=== PATIENT | female | born 1995 | race Caucasian/White ===

== ENCOUNTER 2023-04-24 14:22 | Inpatient (IN) | payer OTHER ==
[~2023-04-24] VITALS: Ht 170.2 cm; Wt 83.9 kg
[2023-04-24 15:00] VITALS: BP 136/75; TEMP 98.2; O2SAT 98
[2023-04-24] MEDS ORDERED: MAG HYDROX/AL HYDROX/SIMETH 30 ML UDC PO PRN (15:00)
[2023-04-24] MEDS ORDERED: LORAZEPAM 1 MG TABLET FOR AGITATION PO PRN (15:00)
[2023-04-24] MEDS ORDERED: ACETAMINOPHEN ES 500 MG TABLET PO PRN (15:00)
[2023-04-24] MEDS ORDERED: MAGNESIUM HYDROXIDE 30 ML UDC PO PRN (15:00)
[2023-04-24] MEDS ORDERED: ZOLPIDEM TARTRATE 10 MG TABLET PO PRN (15:00)
[2023-04-24 18:00] VITALS: BP 136/75; TEMP 98.2; O2SAT 98
[2023-04-24 20:28] VITALS: BP 114/79; TEMP 99; O2SAT 97
[2023-04-24] MEDS: PALIPERIDONE 6 MG PO ONE (22:52)
[2023-04-25 08:00] VITALS: BP 116/60; TEMP 98.8; O2SAT 97
[2023-04-25 16:00] VITALS: BP 108/61; TEMP 98.2; O2SAT 99
[2023-04-25 20:00] VITALS: BP 113/64; TEMP 98.2; O2SAT 100
[2023-04-25] MEDS: PALIPERIDONE 3 MG PO SCH (22:00)
[2023-04-26 07:00] VITALS: BP 104/65; TEMP 98.6; O2SAT 98
[2023-04-26 16:00] VITALS: BP 120/74; TEMP 99.5; O2SAT 99
[2023-04-26 21:03] VITALS: BP 100/62; TEMP 98.1; O2SAT 98
[2023-04-27 07:00] VITALS: BP 103/61; TEMP 98.4; O2SAT 99
[2023-04-27 16:00] VITALS: BP 108/61; TEMP 98.6; O2SAT 99
[2023-04-27 20:00] VITALS: BP 108/53; TEMP 97.5; O2SAT 98
[2023-04-28 07:00] VITALS: BP 123/72; TEMP 98.6; O2SAT 98
[2023-04-28 16:00] VITALS: BP 100/60; TEMP 98.4; O2SAT 99
[2023-04-28 20:00] VITALS: BP 112/67; TEMP 98.8; O2SAT 97
[2023-04-29 07:00] VITALS: BP 110/55; TEMP 97.9; O2SAT 100
[2023-04-29 17:07] VITALS: BP 111/63; TEMP 98.2; O2SAT 100
[2023-04-29 20:00] VITALS: BP 102/60; TEMP 98.8; O2SAT 98
[2023-04-30 08:27] VITALS: BP 109/67; TEMP 98.2; O2SAT 100
[2023-04-30 20:00] VITALS: BP 102/63; TEMP 98.1; O2SAT 98
[2023-05-01 08:00] VITALS: BP 109/68; TEMP 98.2; O2SAT 96
[2023-05-01 16:00] VITALS: BP 115/63; TEMP 98.8; O2SAT 100
[2023-05-01 20:00] VITALS: BP 113/71; TEMP 98.7; O2SAT 100
[2023-05-01 21:00] VITALS: BP 113/71; TEMP 98.7; O2SAT 100
[2023-05-02 20:00] VITALS: BP 120/73; TEMP 98.8; O2SAT 98
[2023-05-03 07:00] VITALS: BP 106/66; TEMP 98.4; O2SAT 99
[2023-05-03 16:09] VITALS: BP 109/60; TEMP 98.4; O2SAT 99
[2023-05-03 20:40] VITALS: BP 117/68; TEMP 98.4; O2SAT 100
[2023-05-04] MEDS: IBUPROFEN 200 MG TABLET PO PRN (06:25)
[2023-05-04 07:00] VITALS: BP 110/64; TEMP 98.4; O2SAT 99
[2023-05-04 16:04] VITALS: BP 104/57; TEMP 98.4; O2SAT 98
[2023-05-04 20:00] VITALS: BP 129/74; TEMP 98.2; O2SAT 96
[2023-05-05 08:30] VITALS: BP 121/68; TEMP 98.4; O2SAT 99
[2023-05-05 16:00] VITALS: BP 117/67; TEMP 98.4; O2SAT 99
[2023-05-05 20:00] VITALS: BP 114/73; TEMP 98.6; O2SAT 99
[2023-05-06 07:00] VITALS: BP 115/72; TEMP 97.4; O2SAT 98
[2023-05-06 16:00] VITALS: BP 106/66; TEMP 97.9; O2SAT 99
[2023-05-06 20:00] VITALS: BP_SYST 113; BP_SYST 120; BP_DIAS 72; BP_DIAS 76; TEMP 97.7; TEMP 98.4; O2SAT 97; O2SAT 99
[2023-05-07 08:00] VITALS: BP 113/71; TEMP 98.4; O2SAT 96
[2023-05-07 16:00] VITALS: BP 105/54; TEMP 98.6; O2SAT 98
[2023-05-07 20:00] VITALS: BP 116/76; TEMP 97.9; O2SAT 99
[2023-05-08 08:00] VITALS: BP 113/68; TEMP 97.7; O2SAT 98
[2023-05-08] MEDS ORDERED: ZOLPIDEM TARTRATE 10 MG TABLET PO PRN (13:00)
[2023-05-08] MEDS ORDERED: LORAZEPAM 1 MG TABLET FOR AGITATION PO PRN (13:00)
[2023-05-08 16:00] VITALS: BP_SYST 111; BP_SYST 149; BP_DIAS 65; TEMP 97.7; O2SAT 99
[2023-05-08 20:00] VITALS: BP 117/68; TEMP 98.8; O2SAT 99
[2023-05-08 20:51] VITALS: BP 117/68; TEMP 98.8; O2SAT 99
[2023-05-09 07:30] VITALS: BP 106/61; TEMP 98.4; O2SAT 96
[2023-05-09] MEDS: INVEST MED CVL-231-2002 PO SCH (09:07)
[2023-05-09 16:00] VITALS: BP 107/65; TEMP 98.1; O2SAT 99
[2023-05-09 20:00] VITALS: BP 111/68; TEMP 98.8; O2SAT 99
[2023-05-10 07:30] VITALS: BP 110/66; TEMP 97.3; O2SAT 99
[2023-05-10 20:00] VITALS: BP 114/66; TEMP 98.3; O2SAT 97
[2023-05-11 07:30] VITALS: BP 106/60; TEMP 97.8; O2SAT 96
[2023-05-11 16:00] VITALS: BP 100/57; TEMP 98.8; O2SAT 100
[2023-05-11 20:00] VITALS: BP 112/67; TEMP 97.9; O2SAT 100
[2023-05-11 21:39] VITALS: BP 123/70; TEMP 98.2; O2SAT 99
[2023-05-12 07:00] VITALS: BP 107/67; TEMP 97.9; O2SAT 98
[2023-05-12 16:00] VITALS: BP 112/80; TEMP 98.1; O2SAT 98
[2023-05-12 20:00] VITALS: BP 116/71; TEMP 98.1; O2SAT 99
[2023-05-13 07:30] VITALS: BP 100/68; TEMP 97.7; O2SAT 99
[2023-05-13 20:00] VITALS: BP 106/72; TEMP 97.9; O2SAT 98
[2023-05-14 16:00] VITALS: BP 103/71; TEMP 98.4; O2SAT 99
[2023-05-14 20:00] VITALS: BP 112/72; TEMP 98.6; O2SAT 97
[2023-05-15] MEDS ORDERED: LORAZEPAM 1 MG TABLET FOR AGITATION PO PRN (13:00)
[2023-05-15] MEDS ORDERED: ZOLPIDEM TARTRATE 10 MG TABLET PO PRN (13:00)
[2023-05-15 16:00] VITALS: BP 100/50; TEMP 98; O2SAT 100
[2023-05-15 20:00] VITALS: BP 106/74; TEMP 97.9; O2SAT 97
[2023-05-16 08:00] VITALS: BP 104/59; TEMP 97.9; O2SAT 92
[2023-05-16 16:13] VITALS: BP 106/66; TEMP 98.1; O2SAT 99
[2023-05-17 07:00] VITALS: BP 111/60; TEMP 98.4; O2SAT 99
[2023-05-17 20:00] VITALS: BP 95/76; TEMP 98.6; O2SAT 95
[2023-05-18 08:30] VITALS: BP 103/63; TEMP 98.2; O2SAT 97
[2023-05-18 16:24] VITALS: BP 105/69; TEMP 98.6; O2SAT 100
[2023-05-18 21:00] VITALS: BP 119/72; TEMP 98; O2SAT 99
[2023-05-19 08:52] VITALS: BP 115/66; TEMP 98.6; O2SAT 97
[2023-05-19 20:00] VITALS: BP 114/69; TEMP 99; O2SAT 94
[2023-05-20 09:19] VITALS: BP 104/63; TEMP 98.4; O2SAT 99
[2023-05-20 21:19] VITALS: BP 121/67; TEMP 98.4; O2SAT 98
[2023-05-21 07:00] VITALS: BP 115/70; TEMP 97.5; O2SAT 97
[2023-05-21 16:00] VITALS: BP 112/73; TEMP 98.8; O2SAT 99
[2023-05-21 20:00] VITALS: BP 109/67; TEMP 98.6; O2SAT 99
[2023-05-22 08:00] VITALS: BP 117/76; TEMP 98.6; O2SAT 100
[2023-05-22] MEDS ORDERED: ZOLPIDEM TARTRATE 10 MG TABLET PO PRN (13:00)
[2023-05-22] MEDS ORDERED: LORAZEPAM 1 MG TABLET FOR AGITATION PO PRN (13:00)
[2023-05-22 20:00] VITALS: BP 107/63; TEMP 97.9; O2SAT 97
[2023-05-23 07:00] VITALS: BP 97/64; TEMP 99; O2SAT 97
[2023-05-23 16:00] VITALS: BP 114/64; TEMP 99; O2SAT 98
[2023-05-23 20:00] VITALS: BP_SYST 114; BP_SYST 119; BP_DIAS 66; TEMP 90.9; TEMP 98.4; O2SAT 98
[2023-05-24 07:30] VITALS: BP 114/72; TEMP 98.8; O2SAT 98
[2023-05-24 20:00] VITALS: BP 107/50; TEMP 98.6; O2SAT 96
[2023-05-25 08:00] VITALS: BP 107/60; TEMP 98.2; O2SAT 100
[2023-05-25 16:00] VITALS: BP 114/67; TEMP 97.8; O2SAT 97
[2023-05-25 20:00] VITALS: BP 117/71; TEMP 98.8; O2SAT 99
[2023-05-26 08:00] VITALS: BP 127/79; TEMP 97.9; O2SAT 99
[2023-05-26 16:00] VITALS: BP 114/72; TEMP 99; O2SAT 98
[2023-05-26 20:00] VITALS: BP_SYST 125; BP_DIAS 51; BP_DIAS 81; TEMP 99; O2SAT 98
[2023-05-27 08:00] VITALS: BP 122/72; TEMP 98.8; O2SAT 98
[2023-05-27 16:00] VITALS: BP 127/80; TEMP 97.3; O2SAT 98
[2023-05-27 20:15] VITALS: BP 116/72; TEMP 98.6; O2SAT 98
[2023-05-28 08:00] VITALS: BP 116/62; TEMP 98.4; O2SAT 99
[2023-05-28 20:00] VITALS: BP 112/68; TEMP 98.2; O2SAT 97
[2023-05-29 08:00] VITALS: BP 112/66; TEMP 98.8; O2SAT 98
[2023-05-29] MEDS ORDERED: ZOLPIDEM TARTRATE 10 MG TABLET PO PRN (13:00)
[2023-05-29] MEDS ORDERED: LORAZEPAM 1 MG TABLET FOR AGITATION PO PRN (13:00)
[2023-05-29 16:00] VITALS: BP 132/90; TEMP 97.7; O2SAT 97
[2023-05-30 08:00] VITALS: BP 114/79; TEMP 98.1; O2SAT 98
[2023-05-30 16:00] VITALS: BP 106/58; TEMP 98.2; O2SAT 98
[2023-05-30 20:00] VITALS: BP 105/62; TEMP 98.4; O2SAT 98
[2023-05-31 08:00] VITALS: BP 109/67; TEMP 98.2; O2SAT 98
[2023-05-31 16:00] VITALS: BP 118/70; TEMP 97.9; O2SAT 98
[2023-05-31 20:00] VITALS: BP 96/51; TEMP 98.1; O2SAT 97
[2023-06-01 07:30] VITALS: BP 109/62; TEMP 98.4; O2SAT 97
[2023-06-01 20:00] VITALS: BP 120/73; TEMP 98.4; O2SAT 97
[2023-06-02 08:00] VITALS: BP 115/60; TEMP 98.8; O2SAT 98
[2023-06-02 15:45] VITALS: BP 106/61; TEMP 98.2; O2SAT 98
[2023-06-02 20:00] VITALS: BP 119/69; TEMP 98.1; O2SAT 99
[2023-06-03 07:30] VITALS: BP 117/63; TEMP 98.4; O2SAT 99
[2023-06-03 16:00] VITALS: BP 113/70; TEMP 97.7; O2SAT 100
[2023-06-03 20:00] VITALS: BP 121/78; TEMP 98.2; O2SAT 99
[2023-06-04 08:00] VITALS: BP 115/67; TEMP 98.4; O2SAT 98
[2023-06-04 16:00] VITALS: BP 114/78; TEMP 98.2; O2SAT 98
[2023-06-04] MEDS: ENSURE ENLIVE 237 ML LIQUID (VANILLA) PO SCH (17:41)
[2023-06-04 20:00] VITALS: BP 116/74; TEMP 98.8; O2SAT 98
[2023-06-05 08:00] VITALS: BP 109/67; TEMP 99; O2SAT 99
[2023-06-05] MEDS ORDERED: ZOLPIDEM TARTRATE 10 MG TABLET PO PRN (13:00)
[2023-06-05] MEDS ORDERED: LORAZEPAM 1 MG TABLET FOR AGITATION PO PRN (13:00)
[2023-06-05 20:00] VITALS: BP 113/61; TEMP 97.7; O2SAT 97
[2023-06-06 08:00] VITALS: BP 144/69; TEMP 98.4; O2SAT 98
[2023-06-06 09:00] VITALS: BP 114/69; TEMP 98.4; O2SAT 98
[2023-06-06 16:00] VITALS: BP 118/72; TEMP 98.2; O2SAT 99
[2023-06-06 20:00] VITALS: BP 119/72; TEMP 98.2; O2SAT 97
[2023-06-07 08:00] VITALS: BP 111/69; TEMP 98.2; O2SAT 100
[2023-06-07 16:00] VITALS: BP 129/76; TEMP 98.5; O2SAT 98
[2023-06-07 20:00] VITALS: BP 122/77; TEMP 97.7; O2SAT 98
[2023-06-08 08:00] VITALS: BP 109/70; TEMP 97.7; O2SAT 99
[2023-06-08 16:09] VITALS: BP 104/78; TEMP 99.5; O2SAT 98
[2023-06-08 20:00] VITALS: BP 116/62; TEMP 98.6; O2SAT 97
[2023-06-09 07:30] VITALS: BP 107/64; TEMP 98.8; O2SAT 96
[2023-06-09 16:00] VITALS: BP 120/66; TEMP 98.2; O2SAT 98
[2023-06-09 20:00] VITALS: BP 116/66; TEMP 98.2; O2SAT 97
[2023-06-10 08:00] VITALS: BP 136/83; TEMP 98.2; O2SAT 98
[2023-06-10 16:00] VITALS: BP 112/66; TEMP 98.4; O2SAT 100
[2023-06-10 20:00] VITALS: BP 117/63; TEMP 97.9; O2SAT 100
[2023-06-11 07:00] VITALS: BP 117/68; TEMP 97.9; O2SAT 98
[2023-06-11 16:00] VITALS: BP 103/63; TEMP 98.4; O2SAT 99
[2023-06-11 20:00] VITALS: BP 106/66; TEMP 98.6; O2SAT 98
[2023-06-12 08:30] VITALS: BP 100/67; TEMP 98.1; O2SAT 98
[2023-06-12] MEDS ORDERED: ZOLPIDEM TARTRATE 10 MG TABLET PO PRN (13:00)
[2023-06-12] MEDS ORDERED: LORAZEPAM 1 MG TABLET FOR AGITATION PO PRN (13:00)
[2023-06-12 16:00] VITALS: BP 113/71; TEMP 98.6; O2SAT 97
[2023-06-12 20:00] VITALS: BP_SYST 117; BP_SYST 145; BP_DIAS 69; BP_DIAS 88; TEMP 97.7; TEMP 97.9; O2SAT 92; O2SAT 99
[2023-06-13] VITALS: BP 94/60; TEMP 97.5; O2SAT 94
[2023-06-13 04:00] VITALS: BP 101/55; TEMP 97; O2SAT 93
[2023-06-13 08:00] VITALS: BP 104/63; TEMP 98.4; O2SAT 100
[2023-06-13 16:00] VITALS: BP 101/57; TEMP 98.4; O2SAT 97
[2023-06-13 20:00] VITALS: BP 137/71; TEMP 98.1; O2SAT 98
[2023-06-14 08:00] VITALS: BP 105/67; TEMP 98.2; O2SAT 98
[2023-06-14 16:00] VITALS: BP 103/66; TEMP 98.6; O2SAT 98
[2023-06-14 20:00] VITALS: BP 120/77; TEMP 97.8; O2SAT 100
[2023-06-15 07:00] VITALS: BP 119/79; TEMP 97.5; O2SAT 98
[2023-06-15 16:00] VITALS: BP 124/63; TEMP 98.6; O2SAT 93
[2023-06-15 20:00] VITALS: BP_SYST 105; BP_SYST 120; BP_DIAS 66; BP_DIAS 75; TEMP 98.5; O2SAT 96
[2023-06-16 08:00] VITALS: BP 109/61; TEMP 98.2; O2SAT 99
[2023-06-16 16:00] VITALS: BP 123/74; TEMP 98.2; O2SAT 96
[2023-06-16 20:00] VITALS: BP 115/85; TEMP 98.4; O2SAT 99
[2023-06-17 07:30] VITALS: BP 104/68; TEMP 97.9; O2SAT 98
[2023-06-17 20:00] VITALS: BP 118/75; TEMP 98.4; O2SAT 99
[2023-06-18 08:00] VITALS: BP 118/64; TEMP 99.1; O2SAT 99
[2023-06-18 16:00] VITALS: BP 109/65; TEMP 98.6; O2SAT 97
[2023-06-19 08:00] VITALS: BP 127/73; TEMP 98.2; O2SAT 97
[2023-06-19] MEDS ORDERED: LORAZEPAM 1 MG TABLET FOR AGITATION PO PRN (13:00)
[2023-06-19] MEDS ORDERED: ZOLPIDEM TARTRATE 10 MG TABLET PO PRN (13:00)
[2023-06-19 16:00] VITALS: BP 106/66; TEMP 98.6; O2SAT 100
[2023-06-19 20:00] VITALS: BP 119/71; TEMP 98.2; O2SAT 98
[2023-06-19 22:57] VITALS: BP 119/71; TEMP 98.2; O2SAT 98
[2023-06-20 08:00] VITALS: BP 110/72; TEMP 97.9; O2SAT 98
[2023-06-20 16:00] VITALS: BP 100/44; TEMP 99; O2SAT 99
[2023-06-20 22:00] VITALS: BP 123/74; TEMP 98; O2SAT 98
[2023-06-21 05:29] VITALS: BP 119/71; TEMP 98; O2SAT 98
[2023-06-21 08:00] VITALS: BP 114/71; TEMP 98.4; O2SAT 99
[2023-06-21 16:00] VITALS: BP 111/58; TEMP 98.4; O2SAT 99
[2023-06-21 21:17] VITALS: BP 107/65; TEMP 98.2; O2SAT 97
[2023-06-22 08:00] VITALS: BP 111/65; TEMP 97.9; O2SAT 98
== END 2023-06-22 10:30 | disposition home or self-care (01) | DRG 951 ==
LOC: MED 14:22
PROVIDERS: ADMIT Psychiatry & Neurology Psychiatry; ATTEND Psychiatry & Neurology Psychiatry
DX: Z00.6 Encounter for examination for normal comparison and control in clinical research program (principal); F20.0 Paranoid schizophrenia; R53.1 Weakness; R53.83 Other fatigue
CPT/HCPCS: G0378

== ENCOUNTER 2024-06-26 10:28 | Inpatient (IN) | payer OTHER ==
[~2024-06-26] VITALS: Ht 170.2 cm; Wt 88.5 kg
[2024-06-26] MEDS ORDERED: ZOLPIDEM TARTRATE 10 MG TABLET PO PRN (17:00)
[2024-06-26] MEDS ORDERED: LORAZEPAM 1 MG TABLET FOR AGITATION PO PRN (17:00)
[2024-06-26] MEDS ORDERED: IBUPROFEN 200 MG TABLET PO PRN (17:00)
[2024-06-26] MEDS ORDERED: MAGNESIUM HYDROXIDE 30 ML UDC PO PRN (17:00)
[2024-06-26] MEDS ORDERED: ACETAMINOPHEN ES 500 MG TABLET PO PRN (17:00)
[2024-06-26] MEDS ORDERED: MAG HYDROX/AL HYDROX/SIMETH 30 ML UDC PO PRN (17:00)
[2024-06-26 20:55] VITALS: BP 116/71; TEMP 98.2; O2SAT 100
[2024-06-26] MEDS: PALIPERIDONE 9 MG PO SCH (21:06)
[2024-06-26 22:50] VITALS: BP 119/75; TEMP 97.7; O2SAT 95
[2024-06-27 08:00] VITALS: BP 109/66; TEMP 98.2; O2SAT 98
[2024-06-27 16:07] VITALS: BP 107/76; TEMP 98.1; O2SAT 100
[2024-06-27 20:33] VITALS: BP 105/65; TEMP 98.1; O2SAT 99
[2024-06-27] MEDS: KEY,NONCONTROL,TO KEEP IN PYXI 1 EA MC ONE (21:28)
[2024-06-28 08:30] VITALS: BP 109/70; TEMP 98.4; O2SAT 99
[2024-06-28 16:00] VITALS: BP 105/61; TEMP 98.4; O2SAT 98
[2024-06-28 20:00] VITALS: BP 106/79; TEMP 97.7; O2SAT 98
[2024-06-28 21:16] VITALS: BP 114/77; TEMP 97.7; O2SAT 98
[2024-06-29] MEDS: KEY,NONCONTROL,TO KEEP IN PYXI 1 EA MC ONE (02:28)
[2024-06-29 08:00] VITALS: BP 113/62; TEMP 98.2; O2SAT 100
[2024-06-29 16:00] VITALS: BP 106/64; TEMP 98.1; O2SAT 99
[2024-06-29 21:24] VITALS: BP 109/70; TEMP 98.9; O2SAT 100
[2024-06-29] MEDS: PALIPERIDONE 9 MG PO SCH (21:57)
[2024-06-30 08:08] VITALS: BP 101/60; TEMP 97.7; O2SAT 100
[2024-06-30] MEDS ORDERED: KEY,NONCONTROL,TO KEEP IN PYXI 1 EA MC ONE (14:16)
[2024-06-30 16:00] VITALS: BP 111/61; TEMP 98.8; O2SAT 100
[2024-06-30 20:00] VITALS: BP 120/73; TEMP 98.2; O2SAT 100
[2024-07-01 08:00] VITALS: BP 108/72; TEMP 98.1; O2SAT 99
[2024-07-01 16:00] VITALS: BP 120/79; TEMP 98.1; O2SAT 99
[2024-07-01 20:00] VITALS: BP 117/72; TEMP 98.1; O2SAT 98
[2024-07-02 07:00] VITALS: BP 106/64; TEMP 98.1; O2SAT 98
[2024-07-02 16:00] VITALS: BP 106/66; TEMP 98.2; O2SAT 100
[2024-07-02 20:00] VITALS: BP 132/79; TEMP 98.1; O2SAT 99
[2024-07-03 20:36] VITALS: BP 100/62; TEMP 98.1; O2SAT 100
[2024-07-04 08:37] VITALS: BP 102/52; TEMP 98; O2SAT 100
[2024-07-04 15:51] VITALS: BP 119/79; TEMP 98.6; O2SAT 100
[2024-07-04 20:00] VITALS: BP 111/71; TEMP 97.4; O2SAT 98
[2024-07-05 08:00] VITALS: BP 96/54; TEMP 98.1; O2SAT 99
[2024-07-05 16:00] VITALS: BP 100/60; TEMP 98.3; O2SAT 97
[2024-07-05 20:00] VITALS: BP 103/62; TEMP 98.2; O2SAT 99
[2024-07-06 07:30] VITALS: BP 109/66; TEMP 98.1; O2SAT 98
[2024-07-06 16:00] VITALS: BP 117/60; TEMP 97.9; O2SAT 98
[2024-07-06 20:57] VITALS: BP 110/70; TEMP 98.1; O2SAT 96
[2024-07-07 08:38] VITALS: BP 109/78; TEMP 97.9; O2SAT 99
[2024-07-07 16:17] VITALS: BP 109/62; TEMP 98.2; O2SAT 100
[2024-07-07 20:00] VITALS: BP 112/67; TEMP 98.1; O2SAT 100
[2024-07-08 20:00] VITALS: BP 101/60; TEMP 98.1; O2SAT 98
[2024-07-09 08:00] VITALS: BP 112/67; TEMP 97; O2SAT 96
[2024-07-09 16:00] VITALS: BP 129/45; TEMP 98.2; O2SAT 100
[2024-07-09 20:17] VITALS: BP 111/64; TEMP 98.1; O2SAT 98
[2024-07-10 08:00] VITALS: BP 110/64; TEMP 98.2; O2SAT 98
[2024-07-10] MEDS ORDERED: LORAZEPAM 1 MG TABLET FOR AGITATION PO PRN (13:00)
[2024-07-10] MEDS ORDERED: ZOLPIDEM TARTRATE 10 MG TABLET PO PRN (13:00)
[2024-07-10 16:00] VITALS: BP 106/58; TEMP 99; O2SAT 97
[2024-07-10 20:00] VITALS: BP 102/54; TEMP 98.2; O2SAT 100
[2024-07-10] MEDS: INVEST MED OTSUKA 382-201-00035 PO SCH (20:33)
[2024-07-11 08:00] VITALS: BP 111/62; TEMP 98.6; O2SAT 99
[2024-07-11 16:00] VITALS: BP 123/72; TEMP 98.2; O2SAT 97
[2024-07-11 20:00] VITALS: BP 122/64; TEMP 98.2; O2SAT 99
[2024-07-12 20:00] VITALS: BP 111/61; TEMP 98.8; O2SAT 98
[2024-07-13 09:03] VITALS: BP 114/68; TEMP 98.4; O2SAT 99
[2024-07-13 20:00] VITALS: BP 116/70; TEMP 98.2; O2SAT 100
[2024-07-14 08:00] VITALS: BP 103/61; TEMP 97.9; O2SAT 98
[2024-07-14 16:00] VITALS: BP 121/65; TEMP 98.1; O2SAT 98
[2024-07-14 20:00] VITALS: BP 120/74; TEMP 98.8; O2SAT 100
[2024-07-15 08:19] VITALS: BP 114/73; TEMP 97.9; O2SAT 100
[2024-07-15 16:05] VITALS: BP 121/84; O2SAT 100
[2024-07-15 20:00] VITALS: BP 122/62; TEMP 98.4; O2SAT 100
[2024-07-15 22:54] VITALS: BP 122/62; TEMP 98.4; O2SAT 100
[2024-07-16 08:00] VITALS: BP 107/54; TEMP 97.4; O2SAT 98
[2024-07-16 16:13] VITALS: BP 106/57; TEMP 97.9; O2SAT 99
[2024-07-16 20:00] VITALS: BP 132/78; TEMP 98.2; O2SAT 97
[2024-07-17 07:00] VITALS: BP 117/70; TEMP 99; O2SAT 100
[2024-07-17] MEDS ORDERED: LORAZEPAM 1 MG TABLET FOR AGITATION PO PRN (13:00)
[2024-07-17] MEDS ORDERED: ZOLPIDEM TARTRATE 10 MG TABLET PO PRN (13:00)
[2024-07-17 16:00] VITALS: BP 104/48; TEMP 97.7; O2SAT 100
[2024-07-17 21:57] VITALS: BP 108/62; TEMP 98.4; O2SAT 99
[2024-07-18 08:00] VITALS: BP 136/84; TEMP 98.4; O2SAT 97
[2024-07-25] MEDS ORDERED: ZOLPIDEM TARTRATE 10 MG TABLET PO PRN (13:00)
[2024-07-25] MEDS ORDERED: LORAZEPAM 1 MG TABLET FOR AGITATION PO PRN (13:00)
[2024-08-01] MEDS ORDERED: LORAZEPAM 1 MG TABLET FOR AGITATION PO PRN (13:00)
[2024-08-01] MEDS ORDERED: ZOLPIDEM TARTRATE 10 MG TABLET PO PRN (13:00)
[2024-08-08] MEDS ORDERED: LORAZEPAM 1 MG TABLET FOR AGITATION PO PRN (13:00)
[2024-08-08] MEDS ORDERED: ZOLPIDEM TARTRATE 10 MG TABLET PO PRN (13:00)
[2024-08-15] MEDS ORDERED: LORAZEPAM 1 MG TABLET FOR AGITATION PO PRN (13:00)
[2024-08-15] MEDS ORDERED: ZOLPIDEM TARTRATE 10 MG TABLET PO PRN (13:00)
== END 2024-07-18 18:13 | disposition left against medical advice (07) | DRG 951 ==
LOC: MED 16:12
PROVIDERS: ADMIT Psychiatry & Neurology Psychiatry; ATTEND Psychiatry & Neurology Psychiatry
DX: Z00.6 Encounter for examination for normal comparison and control in clinical research program (principal); F20.0 Paranoid schizophrenia
CPT/HCPCS: A6403; G0378